=== PATIENT | female | born 1975 ===

== ENCOUNTER 2016-06-30 04:50 | Inpatient (IN) | payer MEDICAID ==
[2016-06-30 05:18] VITALS: BMI 25.0
[2016-06-30] MEDS ORDERED: IV START KIT ONE (05:52)
[2016-06-30] MEDS ORDERED: LACTATED RINGERS 1,000 ML ONE (05:52)
[2016-06-30] MEDS: LACTATED RINGERS 1,000 ML IV SCH ×4 (06:05→14:14)
[2016-06-30] MEDS ORDERED: CEFAZOLIN SODIUM 2 GRAM DUPLEX 2 G in Premix (D5W) 50 ml 1 EACH IV PRN (06:15)
[2016-06-30 06:28] LABS: HEMATOCRIT 37.9 % (37.0-47.0); HEMOGLOBIN 12.6 gm/l (12.0-16.0); MEAN CELL VOLUME 97.2 fl (81.0-99.0); MEAN CORPUSCULAR HEMOGLOBIN 32.3 pg (27.0-31.0); MEAN CORPUSCULAR HGB CONC 33.2 g/dl (33.0-37.0); RED CELL DISTRIBUTION WIDTH 13.3 % (11.5-14.5)
[2016-06-30] MEDS ORDERED: CEFAZOLIN SODIUM 2 GRAM DUPLEX 50 ML IV ONE (07:01)
[2016-06-30] MEDS ORDERED: EPHEDRINE SULFATE UD SYR 25 MG 25 MG/5 ML SYRINGE IV ONE (07:25)
[2016-06-30] MEDS ORDERED: SPINAL PROCEDURAL TRAY 1 EACH ONE (07:25)
[2016-06-30] MEDS ORDERED: MORPHINE SULFATE (DURAMORPH) 1 MG/ML 10ML AMP ONE (07:25)
[2016-06-30] MEDS ORDERED: OXYTOCIN 10 UNITS/ML VIAL ONE (07:27)
[2016-06-30] MEDS ORDERED: ONDANSETRON 4 MG/2ML 2 ML VIAL ONE (07:28)
[2016-06-30] MEDS ORDERED: NALBUPHINE HCL 20 MG/ML AMP IV PRN (08:20)
[2016-06-30] MEDS ORDERED: EPHEDRINE SULFATE 50 MG/ML 1ML VIAL IV PRN (08:20)
[2016-06-30] MEDS ORDERED: NALOXONE HCL 0.4 MG/ML VIAL IV PRN (08:20)
[2016-06-30] MEDS ORDERED: ONDANSETRON 4 MG/2ML 2 ML VIAL IV PRN ×2 (08:20→09:14)
[2016-06-30] MEDS ORDERED: PROMETHAZINE HCL 25 MG/ML VIAL IM PRN (08:20)
[2016-06-30] MEDS ORDERED: DIPHENHYDRAMINE HCL 50 MG/1 ML VIAL IV PRN ×2 (08:20→09:14)
[2016-06-30] MEDS ORDERED: DIPHENHYDRAMINE HCL 50 MG/1 ML VIAL ONE (08:41)
[2016-06-30] MEDS ORDERED: LANOLIN 50 APPLIC/7G TUBE TP PRN (09:14)
[2016-06-30] MEDS ORDERED: DIPHENHYDRAMINE HCL 25 MG CAPSULE PO PRN (09:14)
--- NOTE | 2016-06-30 09:19 | PCMBPN ---
Brief Post Op Note: Date of Procedure: 06/30/16 Start Time: see anesth record Preoperative Diagnosis: 1. term iup, SROM/PROM, footling breech/transverse, AMA Postoperative Diagnosis: 1. same and L 2 cm paratubal cyst Procedure: primary c section, drainage of L paratubal cyst Surgeon: Daija Ortiz MD Assist: Jen Morrison MD Anesthesia: Robert Shetty CRNA Findings: footling breech female, low ant placenta-normal, L paratubal cyst, normal ovaries and uterus. Condition: stable Complications: none IV Fluids: 2800 mLs of LR Urine Output: 100 mLs Estimated Blood Loss: 500 mLs Tourniquet Time: N/A Specimens: N/A Implants: n/a Drains: [N/A] TO post op recovery room in excellent condition. Post procedure debriefing held.
[2016-06-30] MEDS ORDERED: HYDROMORPHONE HCL 1 MG/ML SYRINGE IV PRN (09:26)
[2016-06-30] MEDS ORDERED: HYDROMORPHONE HCL 2 MG/ML SYRINGE IV PRN (09:44)
--- NOTE | 2016-06-30 09:55 | OP ---
Missy Rodriguez : 1975 [id number] DATE OF SURGERY: 06/30/2016. PREOPERATIVE DIAGNOSES: 1. Term intrauterine . 2. Spontaneous rupture of membranes and not in labor. 3. Advanced maternal age. 4. Malpresentation most likely footling breech. 5. Anterior low placenta. POSTOPERATIVE DIAGNOSES: 1. Term intrauterine . 2. Spontaneous rupture of membranes and not in labor. 3. Advanced maternal age. 4. Malpresentation most likely footling breech. 5. Anterior low placenta. 6. A 2 cm left paratubal cyst. PROCEDURE: Primary section with drainage of the left paratubal cyst. BRIEF DESCRIPTION: This is a 41-year-old G3, P2, now P3 who presented to [facility] with a spontaneous rupture of membranes, not in labor, and with a footling breech presentation. DESCRIPTION: The patient was taken to the operating room where spinal anesthesia was placed without difficulty. She was then placed in the supine position and prepped and draped for sterile procedure. A pfannenstiel incision was then made sharply through the subcutaneous tissue and to the level of the rectus fascia. The rectus fascia was then transversely incised with Patel scissors. The anterior fascia was grasped with Magdalena's and dissected free from the underlying rectus muscles with blunt dissection and Patel scissors, this was also performed inferiorly. The parietal peritoneum and rectus muscles were then easily with blunt dissection. The parietal peritoneum was also open with blunt dissection. A bladder blade was placed. The vesicouterine peritoneum was then transversely incised for the development of a bladder flap and bladder blade was again replaced. It was noted that the uterus was thickened in the lower uterine segment. There were no significant vessels to signify low placenta. The incision was then made into the uterus sharply and the uterus was easily entered. The incision was then extended laterally with traction in the vertical as well as horizontal manner. The was noted to be with both feet down in a footling breech presentation. All metal was removed. The feet where then delivered through the uterine incision to the level of the spine. The ischial spines were then grasped with a wet towel and the infant was then delivered to the level of the scapula. Each arm was then atraumatically removed without difficulty. The head was then flexed with the finger into the mouth and the female was delivered atraumatically without difficulty. The cord clamping was delayed for approximately 1 minutes. Infant had excellent respiration, tone, and color at presentation. Cord was then clamped and cut. The infant was passed to RN for further resuscitation. Cord blood was collected and sent to the lab. The placenta was noted to be low and anterior and easily removed with gentle traction. The uterus was then delivered onto the abdominal wall. The remain blood contents wiped free with a clean dry lap. The uterine incision was grasped with Eastman clamps and closed with 0 Vicryl running suture in the usual fashion. A secondary imbricating layer was also placed for excellent hemostasis. Ovaries appeared within normal limits. There was a 2 cm left paratubal cyst which as drained of clear benign fluid. The abdominal cavity was then wiped free with a clean dry lap of any blood debris and the uterus was placed back into the abdominal cavity. The incision was once again inspected and showed excellent hemostasis and any blood debris in the gutters was then removed. The parietal peritoneum was grasped and then closed with 2-0 Vicryl running suture in the usual fashion. A single figure of eight stitch was put through the rectus muscles to realign the rectus muscles as well. There was no subfascial bleeding and the fascia was then closed in the usual fashion starting at each corner and proceeding towards the midline. The subcutaneous tissue showed excellent hemostasis and then the skin was closed with suture. All sponge and needle counts were reported as correct. Estimated blood loss was 500 mL. Fluids given 2800 mL. Urine output was 100 mL. No specimens were taken. Patient was doing well and transported to postoperative recovery room in excellent condition. JOB: [id number]
[2016-06-30] MEDS: KETOROLAC TROMETHAMINE 30 MG/ML 1 ML VIAL IV SCH ×3 (10:01→20:16)
[2016-06-30] MEDS ORDERED: KETOROLAC TROMETHAMINE 30 MG/ML 1 ML VIAL IV PRN (15:00)
[2016-07-01] MEDS: KETOROLAC TROMETHAMINE 30 MG/ML 1 ML VIAL IV SCH ×2 (03:13→22:59)
[2016-07-01 06:40] LABS: HEMATOCRIT 34.6 % (37.0-47.0); HEMOGLOBIN 11.5 gm/l (12.0-16.0)
--- NOTE | 2016-07-01 08:19 | PDOC44 ---
- Subjective Day: 1 Reports Pain Tolerable - Objective Temp Pulse Resp BP Pulse Ox 97.8 F 67 16 100/55 97 07/01/16 03:02 07/01/16 05:43 06/30/16 23:22 07/01/16 05:43 06/30/16 14:18 Lab Results 07/01/16 06:00 Hgb 11.5 L Hct 34.6 L Current Medications Generic Name Dose Route Start Last Admin Trade Name Freq PRN Reason Stop Dose Admin Diphenhydramine HCl 25 - 50 mg 06/30/16 09:14 Benadryl PO Q6H PRN Itching (Mild/Moderate) Diphenhydramine HCl 25 - 50 mg 06/30/16 09:14 Benadryl IV Q6H PRN Itching (Severe) Diphenhydramine HCl 25 - 50 mg 06/30/16 08:20 Benadryl IV 07/01/16 08:20 Q4H PRN Itching Docusate Sodium 100 mg 06/30/16 21:00 Colace PO BID ABDIAS Emollient Ointment 1 applic 06/30/16 09:14 [id number] TP PRN PRN sore nipples Ephedrine Sulfate 5 - 10 mg 06/30/16 08:20 Ephedrine Sulfate IV 07/01/16 08:20 Q5M PRN Ferrous Sulfate 325 mg 07/01/16 09:00 Ferrous Sulfate PO DAILY ABDIAS Hydromorphone HCl 0.25 - 0.5 mg 06/30/16 09:26 Dilaudid IV Q5M PRN Pain (Breakthrough) Hydromorphone HCl 0.25 - 0.5 mg 06/30/16 09:44 Dilaudid IV Q5M PRN Pain Lactated Ringer's 1,000 mls @ 100 mls/hr 06/30/16 06:15 06/30/16 14:14 Lactated Ringers IV 100 mls/hr .Q10H ABDIAS Administration Ibuprofen 600 mg 06/30/16 09:14 Motrin PO Q6H PRN Pain Ketorolac Tromethamine 30 mg 06/30/16 15:00 Toradol IV Q6H PRN Pain (Mild/Moderate) Ketorolac Tromethamine 30 mg 06/30/16 08:20 07/01/16 03:13 Toradol IV 07/01/16 08:20 30 mg Q6H ABDIAS Administration Multivi/Iron Carb/Fe Sulf/FA/Prenat 1 tab 07/01/16 09:00 Plus PO DAILY ABDIAS Nalbuphine HCl 1 - 5 mg 06/30/16 08:20 Nubain IV 07/01/16 08:20 Q4H PRN Itching Naloxone HCl 0.2 - 0.4 mg 06/30/16 08:20 Narcan IV 07/01/16 08:20 Q5M PRN Ondansetron HCl 4 mg 06/30/16 09:14 Zofran IV Q6H PRN Nausea/Vomiting Ondansetron HCl 4 mg 06/30/16 08:20 Zofran IV 07/01/16 08:20 Q6H PRN Nausea/Vomiting Oxycodone/Acetaminophen 1 - 2 tab 06/30/16 09:14 Percocet 5/325 PO Q4H PRN Pain (Moderate) Promethazine HCl 6.25 - 12.5 mg 06/30/16 08:20 Phenergan IM 07/01/16 08:20 Q4H PRN Nausea/Vomiting Sodium Chloride 10 ml 06/30/16 09:14 07/01/16 03:13 Normal Saline 10ml Flush IV 10 ml PRN PRN Administration IV Flush Sodium Chloride 10 ml 06/30/16 17:00 06/30/16 18:51 Normal Saline 10ml Flush IV Not Given Q8HR ABDIAS - Physical Exam General: Afebrile Psych/Mental Status: Mood/Affect Appropriate, Judgment/Insight Intact, Bonding Well Neurological: Grossly Intact, Alert, Oriented x 4 HEENT: Atraumatic Lungs: Clear to Auscultation Bilaterally Cardiovascular: Regular Rate and Rhythm Fundus: Firm, Below Umbilicus Abdomen: Normal Bowel Sounds Genitourinary: Normal Female Genitalia - Problems:Assessment/Plan (1) Delivery by section for footling breech presentation Status: AcuteAssessment/Plan: Doing well Exam is normal Continue routine care Disposition: Stable
[2016-07-01] MEDS: IBUPROFEN 600 MG TABLET PO PRN ×3 (09:46→21:50)
[2016-07-01] MEDS: DOCUSATE SODIUM 100 MG CAPSULE PO SCH ×3 (09:46→21:50)
[2016-07-01] MEDS: PRENATAL VIT/FE FUMARATE/FA 1 TABLET PO SCH (09:46)
[2016-07-01] MEDS: FERROUS SULFATE (65 Fe) 325 MG TABLET PO SCH (09:46)
[2016-07-01] MEDS: LACTATED RINGERS 1,000 ML IV SCH ×2 (17:26→17:30)
[2016-07-01] MEDS ORDERED: RHOGAM 300 MCG SYRINGE IV ONE (19:10)
[2016-07-02] MEDS: IBUPROFEN 600 MG TABLET PO PRN ×3 (04:30→17:15)
[2016-07-02] MEDS: DOCUSATE SODIUM 100 MG CAPSULE PO SCH ×2 (09:03→21:38)
[2016-07-02] MEDS: FERROUS SULFATE (65 Fe) 325 MG TABLET PO SCH (09:03)
[2016-07-02] MEDS: PRENATAL VIT/FE FUMARATE/FA 1 TABLET PO SCH (09:03)
--- NOTE | 2016-07-02 09:14 | PDOC44 ---
- Subjective Day: 2 Reports Pain Tolerable, Reports , Reports Lochia Light, Reports Tolerating Regular Diet, Denies Nausea - Objective Temp Pulse Resp BP Pulse Ox 97.7 F 76 12 102/61 97 07/02/16 07:20 07/02/16 07:20 07/02/16 07:20 07/02/16 07:20 06/30/16 14:18 Current Medications Generic Name Dose Route Start Last Admin Trade Name Freq PRN Reason Stop Dose Admin Diphenhydramine HCl 25 - 50 mg 06/30/16 09:14 Benadryl PO Q6H PRN Itching (Mild/Moderate) Diphenhydramine HCl 25 - 50 mg 06/30/16 09:14 Benadryl IV Q6H PRN Itching (Severe) Docusate Sodium 100 mg 06/30/16 21:00 07/02/16 09:03 Colace PO 100 mg BID ABDIAS Administration Emollient Ointment 1 applic 06/30/16 09:14 [id number]-Poklds TP PRN PRN sore nipples Ferrous Sulfate 325 mg 07/01/16 09:00 07/02/16 09:03 Ferrous Sulfate PO 325 mg DAILY ABDIAS Administration Hydromorphone HCl 0.25 - 0.5 mg 06/30/16 09:26 Dilaudid IV Q5M PRN Pain (Breakthrough) Hydromorphone HCl 0.25 - 0.5 mg 06/30/16 09:44 Dilaudid IV Q5M PRN Pain Ibuprofen 600 mg 06/30/16 09:14 07/02/16 04:30 Motrin PO 600 mg Q6H PRN Administration Pain Ketorolac Tromethamine 30 mg 06/30/16 15:00 Toradol IV Q6H PRN Pain (Mild/Moderate) Multivi/Iron Carb/Fe Sulf/FA/Prenat 1 tab 07/01/16 09:00 07/02/16 09:03 Plus PO 1 tab DAILY ABDIAS Administration Ondansetron HCl 4 mg 06/30/16 09:14 Zofran IV Q6H PRN Nausea/Vomiting Oxycodone/Acetaminophen 1 - 2 tab 06/30/16 09:14 Percocet 5/325 PO Q4H PRN Pain (Moderate) Sodium Chloride 10 ml 06/30/16 09:14 07/01/16 03:13 Normal Saline 10ml Flush IV 10 ml PRN PRN Administration IV Flush Sodium Chloride 10 ml 06/30/16 17:00 07/02/16 09:04 Normal Saline 10ml Flush IV 10 ml Q8HR ABDIAS Administration - Physical Exam General: Afebrile Psych/Mental Status: Mood/Affect Appropriate, Judgment/Insight Intact Neurological: Grossly Intact, Alert HEENT: Atraumatic, EOMI Lungs: Clear to Auscultation Bilaterally, Normal Air Movement Cardiovascular: Regular Rate and Rhythm, Normal S1, Normal S2, No Murmur Fundus: Firm, Midline, Below Umbilicus Wound BEAUTY ADVISOR: Dressing Clean/Dry/Intact (steristrips in place), Well Approximated - Problems:Assessment/Plan (1) Delivery by section for footling breech presentation Status: AcuteAssessment/Plan: Doing well Exam is normal Continue routine care Anticipate dc home tomorrow Disposition: Stable, Anticipate DC Home Tomorrow
[2016-07-02] MEDS: OXYCODONE/ACETAMINOPHEN 5/325 MG TABLET PO PRN ×2 (10:54→17:20)
[2016-07-03] MEDS: IBUPROFEN 600 MG TABLET PO PRN ×3 (03:41→17:14)
[2016-07-03] MEDS: OXYCODONE/ACETAMINOPHEN 5/325 MG TABLET PO PRN ×3 (03:41→17:14)
[2016-07-03] MEDS: DOCUSATE SODIUM 100 MG CAPSULE PO SCH ×2 (08:31→20:18)
[2016-07-03] MEDS: PRENATAL VIT/FE FUMARATE/FA 1 TABLET PO SCH (08:31)
[2016-07-03] MEDS: FERROUS SULFATE (65 Fe) 325 MG TABLET PO SCH (08:31)
--- NOTE | 2016-07-03 18:27 | PDOC44 ---
- Subjective Day: 3 Reports Flatus, Reports Pain Tolerable, Reports , Reports Tolerating Regular Diet, Denies Nausea - Objective Temp Pulse Resp BP Pulse Ox 98.9 F 63 16 106/66 97 07/03/16 13:55 07/03/16 13:55 07/03/16 13:55 07/03/16 13:55 06/30/16 14:18 Current Medications Generic Name Dose Route Start Last Admin Trade Name Freq PRN Reason Stop Dose Admin Diphenhydramine HCl 25 - 50 mg 06/30/16 09:14 Benadryl PO Q6H PRN Itching (Mild/Moderate) Diphenhydramine HCl 25 - 50 mg 06/30/16 09:14 Benadryl IV Q6H PRN Itching (Severe) Docusate Sodium 100 mg 06/30/16 21:00 07/03/16 08:31 Colace PO 100 mg BID ABDIAS Administration Emollient Ointment 1 applic 06/30/16 09:14 [id number] TP PRN PRN sore nipples Ferrous Sulfate 325 mg 07/01/16 09:00 07/03/16 08:31 Ferrous Sulfate PO 325 mg DAILY ABDIAS Administration Hydromorphone HCl 0.25 - 0.5 mg 06/30/16 09:26 Dilaudid IV Q5M PRN Pain (Breakthrough) Hydromorphone HCl 0.25 - 0.5 mg 06/30/16 09:44 Dilaudid IV Q5M PRN Pain Ibuprofen 600 mg 06/30/16 09:14 07/03/16 17:14 Motrin PO 600 mg Q6H PRN Administration Pain Ketorolac Tromethamine 30 mg 06/30/16 15:00 Toradol IV Q6H PRN Pain (Mild/Moderate) Multivi/Iron Carb/Fe Sulf/FA/Prenat 1 tab 07/01/16 09:00 07/03/16 08:31 Plus PO 1 tab DAILY ABDIAS Administration Ondansetron HCl 4 mg 06/30/16 09:14 Zofran IV Q6H PRN Nausea/Vomiting Oxycodone/Acetaminophen 1 - 2 tab 06/30/16 09:14 07/03/16 17:14 Percocet 5/325 PO 1 tab Q4H PRN Administration Pain (Moderate) Sodium Chloride 10 ml 06/30/16 09:14 07/01/16 03:13 Normal Saline 10ml Flush IV 10 ml PRN PRN Administration IV Flush - Physical Exam General: Afebrile, No Acute Distress Psych/Mental Status: Mood/Affect Appropriate, Bonding Well Neurological: Alert, Oriented x 4 Lungs: Clear to Auscultation Bilaterally Cardiovascular: Regular Rate and Rhythm Breast: Nipples Intact Fundus: Firm, Midline Extremities: Full ROM, No Edema, No Tenderness Skin: Normal Color, Warm, Dry, Intact, No Rash Wound COOK ENCHILADA: Dressing Clean/Dry/Intact, Well Approximated - Problems:Assessment/Plan (1) Delivery by section for footling breech presentation Status: AcuteAssessment/Plan: Doing well Exam is normal Continue routine care HOld d/c till tomorrow resulting from HIR and phototherapy in infant. Disposition: Anticipate DC Home Tomorrow
[2016-07-04] MEDS: IBUPROFEN 600 MG TABLET PO PRN ×2 (02:33→10:23)
[2016-07-04] MEDS: OXYCODONE/ACETAMINOPHEN 5/325 MG TABLET PO PRN ×2 (02:33→10:23)
[2016-07-04 09:19] VITALS: BP 114/72
[2016-07-04] MEDS: FERROUS SULFATE (65 Fe) 325 MG TABLET PO SCH (10:23)
[2016-07-04] MEDS: DOCUSATE SODIUM 100 MG CAPSULE PO SCH (10:23)
[2016-07-04] MEDS: PRENATAL VIT/FE FUMARATE/FA 1 TABLET PO SCH (10:23)
--- NOTE | 2016-07-04 12:04 | PDOC39B ---
Hospital Course: ADMIT DATE: 06/30/16 DISCHARGE DATE: 07/04/16 ADMISSION DIAGNOSES: Footling breech presentation SROM AMA Term IUP PROCEDURES: primary LTCS HISTORY OF PRESENT ILLNESS: 41 year old G3 T2 L2 at 39 weeks 2 days presenting with SROM and footling breech presentation. HOSPITAL COURSE: The patient underwent primary LTCS without complications. Her recovery was unremarkable. She had a good deal of assistance with . Doing well with BF. By day of discharge the patient is ambulating, eating, voiding, and passing flatus without difficulty. Pain is controlled and lochia is appropriate. - Physical Exam Vital Signs: Temp Pulse Resp BP Pulse Ox 97.8 F 65 18 114/72 97 07/04/16 09:16 07/04/16 09:16 07/04/16 09:16 07/04/16 09:16 06/30/16 14:18 General: Afebrile, No Acute Distress Neurological: Alert, Oriented x 4 Lungs: Clear to Auscultation Bilaterally Cardiovascular: Regular Rate and Rhythm Fundus: Firm, Midline Extremities: Full ROM, No Edema Skin: Normal Color, Warm, Dry, Intact, No Rash Wound: Dressing Clean/Dry/Intact, Well Approximated - Discharge Diagnosis (1) Delivery by section for footling breech presentation Status: AcuteAssessment/Plan: Doing well Exam is normal Continue routine care - Discharge Plan Condition: Good Disposition: Home Instruction Forms: Section Discharge Instructions Prescriptions: Docusate Sodium [COLACE 100 MG CAPSULE (SHF)] 100 mg PO BID #60 capsule Ibuprofen [IBUPROFEN 600 MG TABLET (SHF)] 600 mg PO Q6H PRN #60 tablet PRN Reason: Pain FERROUS SULFATE (65 Fe) [IRON FERROUS SULFATE 325 MG TABLET (SHF)] 325 mg PO DAILY #60 tablet Lanolin [LANOLIN 7 G TUBE (SHF)] 1 applic TP PRN PRN #10 tube PRN Reason: Sore Nipples Oxycodone HCl/Acetaminophen [PERCOCET 5/325 MG TABLET (SHF)] 1 - 2 tab PO Q4H PRN #30 tablet PRN Reason: Pain (Moderate) Follow-Up: Kris Arnold PA-C [Physician Diabetic Educator] - 07/06/16
== END 2016-07-04 13:40 | disposition home or self-care (01) | DRG 766 ==
LOC: FBCOUT 04:50 → FBC 04:50 → FBCOUT 05:53 → FBC 05:53
PROVIDERS: ADMIT Family Medicine; ATTEND Family Medicine
PROC: 10D00Z1 Extraction of Products of Conception, Low, Open Approach (ICD-10-PCS; principal; 2016-06-30)
DX: O32.8XX0 Maternal care for other malpresentation of fetus, not applicable or unspecified (principal); Z3A.39 39 weeks gestation of pregnancy; Z37.0 Single live birth; O09.523 Supervision of elderly multigravida, third trimester

== ENCOUNTER 2016-07-05 15:07 | Outpatient (CLI) | payer MEDICAID | END 2016-07-05 15:08 | disposition home or self-care (01) | LOC: BABIESSH 15:07 | PROVIDERS: ATTEND Family Medicine | DX: Z39.1 Encounter for care and examination of lactating mother (principal) ==